=== PATIENT | male | born 1995 | race Caucasian/White ===

== ENCOUNTER → 2018-10-09 | Outpatient (CLI) | payer OTHER, BC, SELFPAY ==
--- NOTE | 2018-10-09 07:12 | MRI_ITS ---
STUDY: MRI RIGHT KNEE REASON FOR EXAM: Male, 23 years old. Knee injury, knee pain. TECHNIQUE: Standardized fat and water weighted pulse sequences were obtained in all 3 orthogonal planes. COMPARISON: 02/14/2017 FINDINGS: Normal medial meniscus. Normal hyaline cartilage of the medial femorotibial compartment. Normal medial femoral condyle and tibial plateau. Normal medial collateral ligamentous complex (MCL). Normal distal semimembranosus, gracilis and semitendinosus tendons. Normal lateral meniscus. Normal hyaline cartilage of the lateral femorotibial compartment. Normal lateral femoral condyle and tibial plateau. Normal proximal tibiofibular articulation. Normal lateral collateral (fibular) ligament. Normal popliteus tendon. Normal biceps femoris tendon. Normal anterior cruciate ligament (ACL). Normal posterior cruciate ligament (PCL). Normal congruent patellofemoral articulation. Normal hyaline cartilage of the patellofemoral compartment. Normal medial and lateral patellar retinaculum. Normal quadriceps tendon. Normal patellar tendon. Normal Hoffa's fat pad. Trace joint fluid. The soft tissues are unremarkable. The otherwise visualized osseous structures are unremarkable. MRI/Lower Ext Joint Only (Routine) IMPRESSION: Trace joint fluid but no internal derangement. Electronically Signed: Sher Hicks MD at 8:39 EDT Tel , Service support ,
== END | disposition home or self-care (01) ==
PROVIDERS: Referring Provider Family Medicine; Visit Provider Family Medicine
DX: S83.91XA Sprain of unspecified site of right knee, initial encounter (principal)
CPT/HCPCS: 73721

== ENCOUNTER 2024-07-01 11:33 | Emergency (ER) | payer BC, SELFPAY ==
[2024-07-01] VITALS (7 sets, daily range): BP systolic 116–143; BP diastolic 63–114; PULSE 81–94; RESP 16–18; TEMP 36.5; O2SAT 96–99; BMI 48.6
--- NOTE | 2024-07-01 11:44 | EKG12_ITS ---
Test Reason : HEART PALP Blood Pressure : */* mmHG Vent. Rate : 104 BPM Atrial Rate : 104 BPM P-R Int : 128 ms QRS Dur : 90 ms QT Int : 310 ms P-R-T Axes : 9 14 7 degrees QTcB Int : 407 ms Sinus tachycardia Otherwise normal ECG Confirmed by Hadley Wiseman ([id number]), editor index EVELYN HILLMAN ([id number]) on 07/02/2024 9:33:36 AM Referred By: AR/TB Confirmed By: Hadley Wiseman
--- NOTE | 2024-07-01 11:44 | RAD_ITS ---
PROCEDURE: CHEST PA AND LATERAL REASON FOR EXAM: Rapid heart rate. TECHNIQUE: Frontal and lateral views of the chest. COMPARISON: None. FINDINGS: The heart size is normal. The mediastinal contour is unremarkable. No acute consolidation, pleural effusion or pneumothorax. The bones are unremarkable. RAD/Chest PA and Lateral IMPRESSION: No acute consolidation, pleural effusion or pneumothorax. Reading Location: [id number]
[2024-07-01 11:59] LABS: Absolute Lymphocyte Count 0.59 X10^3/uL (0.83-4.51); Absolute Neutrophil Count 2.6 X10^3/uL (2.0-7.7); Basophil# 0.02 X10^3/uL; Basophil% 0.5 % (0-1); Eosinophil# 0.01 X10^3/uL; Eosinophils% 0.3 % (0-5); Hematocrit 48.6 % (40-54); Lymphocyte # 0.59 X10^3/ul (0.83-4.51); Lymphocyte % 15.9 % (19-41); Mean Corp Hgb Conc 32.9 g/dL (32-36); Mean Corpuscular Hgb 27.8 pg (27.0-32.0); Mean Corpuscular Volume 84.5 fL (80-94); Mean Platelet Vol. 10.3 fl (6.2-12.0); Monocyte# 0.38 X10^3/uL; Monocyte% 10.3 % (0-10); NRBC Flagged by Analyzer 0 % (0-5); Neutrophil # 2.64 X10^3/uL (2.7-7.7); Neutrophil % 71.4 % (47-70); POSITIVE DIFFERENTIAL YES; Platelet Count 186 K/mm3 (150-450); RBC Distribution Width CV 13.5 % (11.6-14.6); RBC Distribution Width SD 41.7 fl (35.1-43.9); Red Blood Count 5.75 M/mm3 (4.6-6.2); White Blood Count 3.7 K/mm3 (4.4-11.0)
[2024-07-01 12:39] LABS: Anion Gap 12 (5-15); BUN 13 mg/dL (4-19); BUN/Creat Ratio 14.2 RATIO (10-20); Calcium 9.2 mg/dL (7.6-11.0); Carbon Dioxide 20.6 mmol/L (22.0-29.0); Chloride 102 mmol/L (96-108); Creatinine, Serum 0.9 mg/dL (0.8-1.3); EST Glomerular Filtration Rate 117 (>60); Estimated Creatinine Clearance 183.64 ml/min; Glucose 89 mg/dL (70-99); Potassium 4.1 mmol/L (3.3-5.1); Sodium Level 135 mmol/L (133-145); Troponin T High Sensitivity 10 ng/L (<=22)
--- NOTE | 2024-07-01 13:25 | EX.ED.DYSGE1 ---
HPI History of Present Illness Chief Complaint: Palpitations Narrative Narrative: 28-year-old male who denies significant past medical history presents with his father because of heart palpitations and high heart rate that he has had since yesterday. He states that yesterday at work he felt flushed and started having increased heart rate. His heart is not skipping a beat but he states that it was fast. When he got home from work, he laid down for a nap and when he awoke around 7:30 PM, he noticed elevated heart rate at about 106 at rest. He denies any exacerbating or alleviating factors but does state when he walks at work, sometimes he does have elevated heart rate and can feel palpitations. He does admit to using caffeine products and energy drinks on occasion. PFSH PFSH Medical History no medical history Allergy/AdvReac Type Severity Reaction Status Date / Time tamsulosin (From Flomax) AdvReac Severe Nausea/Vom/ Verified 07/01/24 11:36 Diarrhea Family History no significant family his Surgical History History of appendectomy Social History Smoking Status: Never smoker ROS ROS ED ROS Narrative Review of systems positive for feeling flushed and heart palpitations. He endorses rapid heart rate. No chills, no cough, no shortness of breath, no leg swelling. No abdominal pain. No recent nausea or vomiting. EXAM Physical Exam Narrative Exam Narrative: Afebrile. Vital signs noted. Nontoxic-appearing. Cardiovascular examination feels a regular rate and rhythm. Lungs are clear to auscultation bilaterally. Abdomen is soft nontender with positive bowel sounds. No guarding or rebound. Neurological examination is nonfocal and nonlateralizing. No pedal edema appreciated. Const Vital Signs: 07/01/24 11:34 07/01/24 12:33 07/01/24 13:00 Temperature 97.7 F L Temperature Source Temporal Pulse Rate 94 85 Respiratory Rate 16 16 Blood Pressure 143/114 H 134/74 H 136/78 H Blood Pressure Mean 123 94 97 Pulse Ox 97 97 97 Oxygen Delivery Method Room Air Room Air Room Air 07/01/24 13:18 07/01/24 13:57 07/01/24 15:00 Temperature Temperature Source Pulse Rate 83 81 Respiratory Rate 18 Blood Pressure 119/90 H 116/81 H Blood Pressure Mean 99 92 Pulse Ox 96 98 Oxygen Delivery Method Room Air Room Air Room Air MDM MDM MDM Narrative Medical decision making narrative: Differential diagnosis includes but not limited to sinus tachycardia versus atrial fibrillation versus SVT. Regarding his high resting heart rate yesterday, it may be secondary to deconditioning or dehydration or intravascular volume depletion as well. Had normal resting heart rate here in the emergency department. Protocol labs were started. EKG was obtained and interpreted by myself independently as normal sinus rhythm/sinus tachycardia 104 bpm without ectopy or acute ST changes. No STEMI. I reviewed his laboratory work and he has a neutropenia of 3.7 which think is nonspecific. There are no prior labs with which to compare. Hemoglobin is normal at 16.0, hematocrit 48.6. Platelet count normal at 186. Electrolyte panel shows sodium normal at 135 with potassium 4.1, BUN of 13 and creatinine 0.9, no evidence of dehydration. Glucose probably elevated at 89 with a normal anion gap of 12. CO2 is slightly low at 20.6 which may be secondary to hyperventilation but is not tachypneic here at rest. Initial high-sensitivity troponin is 10. His lungs he has a 2-hour repeat that is acceptable I feel he can be discharged to follow-up with her primary care provider. He was told he may need to wear a Holter monitor. He may be having more sinus tachycardia secondary to stress and anxiety as well. Chest x-ray interpreted by myself independently shows no evidence of an acute process. I reviewed the radiology report which confirms my independent interpretation. His second troponin is also 10 for a delta of 0. At this point in time, upon repeat examination prior to discharge he feels well and is resting comfortably. He has a heart rate in the 90s. I feel he can be discharged to follow-up with her primary care provider. Return instructions to the emergency department were reviewed. Disposition is discharged home in stable condition. History & Record Review Discussion w/independent historian: Patient Lab Data Attestation: I reviewed the patient's lab results. Labs: Laboratory Results - last 24 hr 07/01/24 07/01/24 11:41 14:20 WBC 3.7 L RBC 5.75 Hgb 16.0 Hct 48.6 MCV 84.5 MCH 27.8 MCHC 32.9 RDW Std Deviation 41.7 RDW Coeff of Pepper 13.5 Plt Count 186 MPV 10.3 Immature Gran % (Auto) 1.600 H Neut % (Auto) 71.4 H Lymph % (Auto) 15.9 L [place] % (Auto) 10.3 H Eos % (Auto) 0.3 Baso % (Auto) 0.5 Absolute Neuts (auto) 2.6 Absolute Lymphs (auto) 0.59 L Nucleated RBC % 0 Sodium 135 Potassium 4.1 Chloride Direct 102 Carbon Dioxide 20.6 L Anion Gap 12 BUN 13 Creatinine 0.9 Estim Creat Clear Calc 183.64 Est GFR (MDRD) Non-Af 117 BUN/Creatinine Ratio 14.2 Glucose 89 Calcium 9.2 Troponin T High Sens 10 Troponin T Hi Sens 2 Hr 10 Troponin T Hi Sens 2Hr Delta 0 Radiography Chest X-Ray - ED: Read by ED Physician Diagnostic Testing: Clinical Impression(s) from Imaging Studies Chest X-Ray 07/01/24 11:44 IMPRESSION: No acute consolidation, pleural effusion or pneumothorax. Reading Location: [facility] Discharge Plan Triage Chief Complaint: Palpitations ED Provider: Adam Ferrara Dx/Rx/DC Orders Clinical Impression: Palpitations, Tachycardia Instructions: ED About Arrhythmias, ED Palpitations Primary Care Provider: Care Physician,No Primary Referrals: Epi Puentes MD [Med Staff - Active Staff] - As soon as possible Care Physician,No Primary [Primary Care Provider] - Activity Restrictions/Additional Instructions: Return to the emergency department with sustained elevated heart rate, new or worsening symptoms. Print Language: Mongolian Disposition Disposition: Home, Self Care
[2024-07-01 15:47] LABS: TROPONIN VARIANCE 2 HR 0; Troponin T High Sens 2 HR 10 ng/L (<=22)
== END 2024-07-01 16:16 | disposition home or self-care (01) ==
PROVIDERS: Emergency Provider Emergency Medicine; Visit Provider Emergency Medicine
DX: R00.2 Palpitations (principal); Z90.49 Acquired absence of other specified parts of digestive tract
CPT/HCPCS: 71046; 80048; 84484; 85025; 93005; 99283; A4216